=== PATIENT | female | born 1955 | race Caucasian/White ===

== ENCOUNTER → 2019-11-03 | Outpatient (CLI) | payer OTHER | END | disposition home or self-care (01) | LOC: MI 09:17 | PROVIDERS: ATTEND Internal Medicine | PROC: B030ZZZ Magnetic Resonance Imaging (MRI) of Brain (ICD-10-PCS; principal; 2019-11-03) | DX: J18.9 Pneumonia, unspecified organism (principal); G04.90 Encephalitis and encephalomyelitis, unspecified; I63.9 Cerebral infarction, unspecified ==